=== PATIENT | male | born 1960 | race Two or more races ===

== ENCOUNTER 2018-12-05 12:41 | Day surgery (SDC) | payer OTHER ==
[~2018-12-05] VITALS: Ht 185.4 cm; Wt 158.8 kg
[2018-12-05] VITALS (13 sets, daily range): BP systolic 123–156; BP diastolic 73–86
--- NOTE | 2018-12-05 07:02 | Pre-Procedure Note/Attestation ---
Pre-Procedure Note/Attestation Complete Prior to Procedure Planned Procedure: right Procedure Narrative: rt shoulder scope, sad, mini beba, rtc debridement Indications for Procedure Pre-Operative Diagnosis: rt shoulder impingement Attestation I attest that I discussed the nature of the procedure; its benefits; risks and complications; and alternatives (and the risks and benefits of such alternatives ), prior to the procedure, with the patient (or the patient's legal malt liquors sales representative). I attest that, if there was a reasonable possibility of needing a blood transfusion, the patient (or the patient's legal malt liquors sales representative) was given the [facility] standardized written summary, pursuant to the Reggie Ariane Blood Safety Act ([place] Health and Safety Code # 1645, as amended). I attest that I re-evaluated the patient just prior to the surgery and that there has been no change in the patient's H&P, except as documented below: none Domenico Thompson MD Dec 05, 2018 07:02
[~2018-12-05 12:41] MED LIST: ceFAZolin 1gm IVPB IVPB ONE; celeBREX 200mg Cap **SURGERY PATIENTS ONLY ORAL ONE; oxyCONTIN 20mg tab ORAL ONE
[2018-12-05 13:17] LABS: APPEARANCE,URINE CLEAR; BILIRUBIN, URINE NEGATIVE (NEGATIVE); GLUCOSE, URINE (UA) NEGATIVE (NEGATIVE); KETONES,URINE NEGATIVE (NEGATIVE); LEUKOCYTE ESTERASE ,URINE 1+ (NEGATIVE); NITRITE,URINE NEGATIVE (NEGATIVE); PH,URINE 6 (4.5-8.0); PROTEIN,URINE 3+ (NEGATIVE); UROBILINOGEN,URINE 1 MG/DL (0.0-1.0)
[2018-12-05 13:21] LABS: COLOR,URINE YELLOW
[2018-12-05] MEDS ORDERED: celeBREX 200mg Cap **SURGERY PATIENTS ONLY ORAL ONE (13:27)
[2018-12-05] MEDS ORDERED: oxyCONTIN 20mg tab ORAL ONE (13:27)
[2018-12-05] MEDS ORDERED: IBUPROFEN600 MG ORAL (13:38)
[2018-12-05] MEDS ORDERED: TRAMADOL HCL50 MG ORAL (13:38)
[2018-12-05] MEDS ORDERED: AMLODIPINE BESY10 MG ORAL (13:38)
[2018-12-05] MEDS ORDERED: ATENOLOL50 MG ORAL (13:38)
[2018-12-05] MEDS ORDERED: HYDROmorphone 1mg/ml Carpuject SUBQ PRN (13:45)
[2018-12-05] MEDS ORDERED: Tylenol #3 tab (300mg/30mg) ORAL PRN (13:45)
[2018-12-05] MEDS ORDERED: D5 1/2NS 1,000 ML IV SCH (13:45)
[2018-12-05] MEDS ORDERED: HYDROcodone/Acetamin 5/325 tab ORAL PRN (13:45)
[2018-12-05] MEDS ORDERED: Sugammadex Sodium 200mg/2ml vial IV ONE (13:47)
[2018-12-05] MEDS ORDERED: Zemuron 50mg/5ml Inj IV ONE (13:47)
[2018-12-05] MEDS ORDERED: Succinylcholine 20mg/ml 10ml vial ONE (13:47)
[2018-12-05] MEDS ORDERED: Propofol 200mg/20ml IV ONE (13:54)
[2018-12-05] MEDS ORDERED: Lidocaine 1% MPF 10mg/ml 5ml ONE (13:54)
[2018-12-05] MEDS ORDERED: fentaNYL 100 mcg/2 mL IV ONE (13:56)
[2018-12-05] MEDS ORDERED: Midazolam 2mg/2ml Inj ONE (13:56)
[2018-12-05] MEDS ORDERED: Sterile Water Irrig 1000ml IRRIG ONE (14:00)
[2018-12-05] MEDS ORDERED: LR 1000ml ONE (14:00)
[2018-12-05] MEDS ORDERED: NS Irrig 1000ml ONE (14:00)
--- NOTE | 2018-12-05 14:32 | Anethesia Preoperative Eval ---
Anesthesia Pre-op PMH/ROS General Date of Evaluation: Dec 05, 2018 Anesthesiologist: Yoav ASA Score: ASA 3 Mallampati Score Class I : Soft palate, uvula, fauces, pillars visible Class II: Soft palate, uvula, fauces visible Class III: Soft palate, base of uvula visible Class IV: Only hard plate visible Mallampati Classification: Class III Surgeon: Angelita Diagnosis: Right shoulder internal derangement Surgical Procedure: Right shoulder arthroscopy Anesthesia History: none Family History: no anesthesia problems Allergies: Coded Allergies: No Known Allergies (Unverified , 12/05/18) Medications: see eMAR Patient NPO?: Yes NPO Date: Dec 04, 2018 NPO Time: 22:00 Past Medical History Cardiovascular: Reports: HTN; Denies: CAD, IA, valve dz, arrhythmia, other Pulmonary: Reports: KEITH - uses cpap at home; Denies: asthma, COPD, other Gastrointestinal/Genitourinary: Denies: GERD, CRI, ESRD, other Neurologic/Psychiatric: Reports: depression/anxiety; Denies: dementia, CVA, TIA, other Endocrine: Reports: DM; Denies: hypothyroidism, steroids, other HEENT: Denies: cataract (L), cataract (R), glaucoma, [place] (L), [place] (R), other Hematology/Immune: Denies: anemia, DVT, bleeding disorder, other Musculoskeletal/Integumentary: Denies: OA, RA, DJD, DDD, edema, other Other: obesity - morbid PSxH Narrative: lap liv Anesthesia Pre-op Phys. Exam Physician Exam Last Vital Signs Date Time Temp Pulse Resp B/P (MAP) Pulse Ox O2 Delivery O2 Flow Rate FiO2 12/05/18 13:33 Room Air 12/05/18 13:13 98.4 55 20 128/77 97 Constitutional: other - moderately anxious Cardiovascular: RRR Respiratory: other - distant/diminished breath sounds bilaterally Airway Exam Mallampati Score: Class III MO: full ROM: limited Teeth: missing, intact Anesthesia Pre-op A/P Labs see chart Studies Pre-op Studies: EKG - NSR Risk Assessment & Plan Assessment: ASA III Plan: GA with right interscalene nerve block Status Change Before Surgery: No Pre-Antibiotics Drug: Ancef 2g Given Within 1 Hr of Incision: Yes Time Given: 14:15 Alexandria Patrick MD Dec 05, 2018 14:32
[2018-12-05] MEDS ORDERED: Ketorolac 30mg Inj ONE ×2 (14:37→16:30)
[2018-12-05] MEDS ORDERED: Glycopyrrolate 0.2mg/ml 1ml Vial ONE (14:37)
--- NOTE | 2018-12-05 15:10 | Brief Operative Note ---
Immediate Post Operative Note Operative Note Chief Complaint: rt shoulder pain Pre-op Diagnosis: rt shoulder impingement Procedure: rt shoulder scope, ashly, medina yoder Post-op Diagnosis: same as pre-op Findings: consistent w/pre-op dx studies Surgeon: md pantera Mason Helper: clayton rodriguez Anesthesiologist: md lb Anesthesia: general Specimen: none Complications: none Condition: stable Fluids: ns Estimated Blood Loss: minimal Drains: none Implant(s) used?: No Ghazala Rodriguez Dec 05, 2018 15:10
[2018-12-05] MEDS ORDERED: NS Irrig 4000ml IRRIG ONE (15:46)
--- NOTE | 2018-12-05 15:49 | 48 Hour Post Anesthesia Eval ---
Post Anesthesia Evaluation Procedure: Right shoulder arthroscopy with subacromial decompression Date of Evaluation: Dec 05, 2018 Airway: patent Nausea: No Vomiting: No Pain Intensity: 0 Hydration Status: adequate Cardiopulmonary Status: at baseline Mental Status/LOC: patient returned to baseline Post-Anesthesia Complications: 0 Follow-up care needed: ready to discharge Alexandria Patrick MD Dec 05, 2018 15:49
--- NOTE | 2018-12-05 15:49 | Immediate Post-Op Evaluation ---
Immediate Post-Op Evalulation Immediate Post-Op Evalulation Procedure: Right shoulder arthroscopy with subacromial decompression Date of Evaluation: Dec 05, 2018 Time of Evaluation: 15:46 IV Fluids: 800 Blood Products: 0 Estimated Blood Loss: min Urinary Output: 0 Blood Pressure Systolic: 156 Blood Pressure Diastolic: 83 Pulse Rate: 52 Respiratory Rate: 16 O2 Sat by Pulse Oximetry: 97 Temperature (Fahrenheit): 97.4 Pain Score (1-10): 0 Nausea: No Vomiting: No Complications 0 Patient Status: awake, reacts, patent, none Hydration Status: adequate Drug: Ancef 2g Given Within 1 Hr of Incision: Yes Time Given: 14:15 Alexandria Patrick MD Dec 05, 2018 15:49
[2018-12-05] MEDS ORDERED: Ketorolac 30mg Inj IV SCH (16:30)
[2018-12-05] MEDS ORDERED: Hydromorphone 0.5mg/0.5ml inj ONE (16:30)
[2018-12-05] MEDS ORDERED: Hydromorphone 0.5mg/0.5ml inj IVP PRN (16:30)
--- NOTE | 2018-12-05 23:15 | Operative Note - Dictated ---
DATE OF OPERATION: 12/05/2018 PREOPERATIVE DIAGNOSES: 1. Right shoulder impingement. 2. Right shoulder partial-thickness tear of the rotator cuff. POSTOPERATIVE DIAGNOSES: 1. Right shoulder impingement. 2. Right shoulder bone spur in the mid AC joint. 3. Right shoulder partial articular-sided rotator cuff tear involving 20% of the rotator cuff with intact bursal side. PROCEDURE: 1. Right shoulder arthroscopy and intraarticular shaving. 2. Right shoulder subacromial bursoscopy, bursectomy, subacromial decompression. 3. Right shoulder mini-Britney procedure (resection of inferior 30% of distal end of the clavicle). 4. Right shoulder debridement of the articular side of rotator cuff. SURGEON: Domenico Thompson M.D. AUCTION BLOCK CLERK: Ghazala Schulz PA-C. Fleet Administrator was present during the actual operative portion of the case and was important and essential part of the operation. During the operation, the licensed sales assistant held and operated the arthroscopic camera for visualization, assisted by manipulating the arm to help with visualization, and helped with essential parts of the repair process as necessary such as operating surgical instruments under surgeon supervision, suture management, and wound closures. ANESTHESIOLOGIST: Dr. Cason. ANESTHESIA: General LMA anesthesia as well as interscalene block for postoperative pain management. ESTIMATED BLOOD LOSS: Less than 20 mL. COMPLICATIONS: None. SURGICAL INDICATION: The patient is a 58-year-old male who sustained the above injury to his shoulder. The patient was treated non-operative initially, but this did not alleviate the patients symptoms. Therefore, after discussing all non-surgical and surgical options, and discussing all foreseeable risk and benefits of surgery, the patient opted for surgical treatment as described above. PATIENT POSITIONING: The patient was brought to the operating room table and was placed on the operating room table. All pressure points were well padded. General anesthesia was induced and the patient was then placed in the lateral decubitus position. All pressure points were well padded again and an axillary roll was placed. The patient's shoulder was then prepped and draped in the usual sterile fashion. Time-out was performed and the appropriate preoperative antibiotic was given by the anesthesiologist. EXAMINATION OF SHOULDER UNDER ANESTHESIA: The shoulder was examined under anesthesia with all muscles well relaxed. The shoulder was forward flexed, abducted and was placed through full range of external and internal rotation. The anterior, posterior, and inferior stability of the shoulder was checked. The exam revealed no evidence of adhesive capsulitis and no evidence of instability. PORTAL PLACEMENT: The posterior portal was established 2 cm inferior and 1 cm medial to the edge of the posterior acromion. A 1-cm skin incision was made using an #11 blade and using the blunt obturator, the cannula was gently placed through the capsule. The mid-glenoid portal was established just lateral to the coracoid process under direct visualization. Direction of the cannula was first established using a spinal needle, and subsequently the cannula was placed through the capsule with a blunt obturator. The anterosuperior cannula was established under direct visualization off the anterolateral edge of the acromion and just anterior to the biceps tendon through the rotator interval. The direction of cannula was first established using a spinal needle, and subsequently, the cannula was placed through the capsule with a blunt obturator. DIAGNOSTIC ARTHROSCOPY: The biceps tendon was probed and pulled through the joint for visualization. It appeared normal. The biceps anchor was palpated with a probe and was visualized. It appeared well attached and there was no evidence of SLAP tear. The posterior labrum and axillary recess was visualized. This was normal and there was no evidence of loose cartilage or fragments in this area. The glenoid articular surface was visualized and it appeared normal. The articular surface of the rotator cuff was visualized and probed next. There was articular-sided rotator cuff tear measuring 20% of the rotator cuff. There was no full-thickness tear. The humeral head articular surface was then visualized. There was no evidence of articular cartilage damage. Next the anterior labrum, middle glenohumeral ligament, subscapularis tendon, and the anteroinferior glenohumeral ligament were evaluated. These structures were completely normal. At this point, the scope was moved to the mid-glenoid portal and the posterior structures including the posterior labrum, posterior capsule, and posterior cuff were visualized. These structures were completely normal. The subscapularis recess was devoid of any loose bodies and the anterior capsule was well attached to the humeral neck. The middle and anterior inferior glenohumeral ligament was visualized. These structures were completely normal. OPERATIVE DEBRIDEMENTS AND REPAIR: Care was given to all partial-thickness tears and frayed structures in the shoulder joint. The frayed rotator cuff and labrum was debrided using a shaver initially through the anterior portal and subsequently through the posterior portal to complete the debridement. This allowed for smooth debridement of all affected structures and all loose fragments were removed. DIAGNOSTIC BURSOSCOPY AND SUBACROMIAL DECOMPRESSION: The subacromial bursa was entered from the posterior portal. The anterior portal was established under the CA ligament using a switching stick. Subacromial arthroscopy was initiated. There was extensive bursitis and thickened and inflamed bursa tissue present. The CA ligament appeared to be scuffed and frayed. The shaver was placed through the anterior cannula and debridement of the hypertrophic bursa tissue was accomplished. Once visualization was adequate, a lateral portal was established using a blunt trocar in the mid portion of the acromion bone in the anterior-posterior direction and approximately 2 cm lateral to the lateral edge of the acromion. Using combination of shaver and electrocautery, the CA ligament was released from the undersurface of the acromion and a complete bursectomy was accomplished. At this point, a subacromial decompression was performed using a alie initially taking off 5-8 mm of the anterolateral edge of the acromion from the lateral portal and viewing from the posterior portal. Then the lateral border of the undersurface of the acromion was decompressed to the same depth as the anterolateral edge. A posterior trough was then created in the acromion in line with the posterior edge of the clavicle. At this point, the scope was placed in the lateral portal and the subacromial decompression was performed from the posterior portal decompressing the undersurface of the acromion to a depth of 5-8 mm. The decompression was performed anterior to the previously marked trough all the way medially to the level of the AC joint. At all times, care was given not to take off too much bone in order to avoid risk of fracture of the acromion. An excellent subacromial decompression was performed in this fashion. At this point, the bursal side of the rotator cuff was examined. All the bursa over the rotator cuff was removed and the rotator cuff was examined with a probe. The arm was placed into external rotation, neutral, and then internal rotation and there was no evidence of rotator cuff tear. The scope was then placed in the posterior portal and the subacromial decompression was rechecked to assure there was no area of bone spur that would be still impinging onto the rotator cuff. EVALUATION OF DISTAL CLAVICLE AND DISTAL CLAVICLE RESECTION: Care was given to the distal end of the clavicle. Using electrocautery and jb, the distal end of the bursa and soft tissue around the distal end of the clavicle was debrided and cleaned. Care was given not to inflict excessive trauma to the ligaments of the AC joint. The distal end of the clavicle appeared to have an inferior osteophyte extending down well bellow the level of the acromion at the level of the AC joint. This appeared to be impinging onto the supraspinatus muscle belly and the musculotendinous junction of the rotator cuff. A mini-Britney procedure was performed by using a alie to resect the inferior 30% of the distal end of the clavicle. This decompression allowed space for the inferior structures to slide without impingement. This co-planed the inferior edge of the distal clavicle with the inferior edge of the acromion. CONDITION AT DISCHARGE FROM OPERATING ROOM: The skin was re-approximated and sterile dressing and sling were applied. All lap counts and instrument counts were correct. The patient tolerated the procedure well without complications and was taken to the recovery room in stable conditions. Domenico Thompson M.D. DR: Esmer JOB#: [id number] CC:
== END 2018-12-05 18:10 | disposition home or self-care (01) ==
LOC: SUR 12:41
DX: M75.41 Impingement syndrome of right shoulder (principal); M75.111 Incomplete rotator cuff tear or rupture of right shoulder, not specified as traumatic; M77.9 Enthesopathy, unspecified; I10 Essential (primary) hypertension; G47.33 Obstructive sleep apnea (adult) (pediatric); E11.9 Type 2 diabetes mellitus without complications; F32.9 Major depressive disorder, single episode, unspecified; F41.9 Anxiety disorder, unspecified; E66.01 Morbid (severe) obesity due to excess calories; Z68.42 Body mass index [BMI] 45.0-49.9, adult
CPT/HCPCS: 29823; 29824; 81003; J0330; J0690; J1170; J1885; J2250; J2405; J2704; J3010; 94003; 94150